=== PATIENT | male | born 1960 | race Caucasian/White ===

== ENCOUNTER 2017-11-30 08:00 | Outpatient (RCR) | payer OTHER ==
[2017-11-25 08:09] VITALS: BP 105/72
[2017-11-25 08:27] LABS: PLATELET COUNT, AUTOMATED 119 K/uL (150-450)
[~2017-11-30 08:00] MED LIST: ADVIL; ALBI30PE; ALL300 PO; AMOX-556 PO; ASP325 PO; BACDS PO; CETI10CA8 PO; DOC100 PO; LEVO50TA80 PO; LEVO75TA73 PO; LOR1 PO; METF-410 PO; MULT1TAB64 PO; PER PO; PRE10 PO; PRO5 PO; TUM500 PO; VALA500T66 PO; ZOLP-350 PO
[2017-11-30 08:07] VITALS: BP 129/85
--- NOTE | 2017-12-01 16:28 | ONCOLOGY FOLLOW UP NOTE ---
EVENT DATE: November 30, 2017 CHIEF COMPLAINT/REASON FOR VISIT Mr. Isaac is a pleasant 56-year-old gentleman with stage IV marginal zone lymphoma and secondary erythrocytosis here for followup. HISTORY OF PRESENT ILLNESS Dell returns. He was diagnosed in 2010 and treated with Treanda and Rituxan, followed by two years of maintenance Rituxan. He finished all therapy in May 2013 and has no evidence of disease at this time. It is not unusual to have a multiple-year remission with this indolent lymphoma, but it is likely not cured. No signs of relapse. He does have acquired hypogammaglobulinemia. No significant infections this winter. He did receive the flu shot. He does get more sinus drainage, but this is likely due to the climate, as this has been a lifelong problem for him. Last summer and fall when he had more issues. The air quality with smoke was poor and that may have been contributing. He has gained some weight and has some left hip pain. He has a history of right hip replacement. I doubt that this is related to the lymphoma. SOCIAL HISTORY The patient has two children. One is a PhD student in chemical engineering at the [employer]. 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 FAMILY HISTORY Remarkable for a father with Waldenstrom macroglobulinemia who from the disease. REVIEW OF SYSTEMS CONSTITUTIONAL: No fevers, chills, weight change. No fatigue today. HEENT: No headache or vision changes. No infectious symptoms. CARDIOVASCULAR: No chest pain, dyspnea on exertion or edema. RESPIRATORY: No shortness of breath, wheeze, cough. GASTROINTESTINAL: No nausea, vomiting, diarrhea. Has had a history of hemorrhoids in the past. Positive weight gain and is going to try to lose weight. MUSCULOSKELETAL: No weakness or joint pain. Positive chronic back pain. Positive left hip pain. PSYCHIATRIC: No anxiety or depression. ENDOCRINE: No heat or cold intolerance. SKIN: No concerning rashes or lesions. LYMPHATIC: No appreciable lumps or bumps that he notices. The remainder of the 14-point review of systems is otherwise negative, except as noted above in the HPI. PHYSICAL EXAMINATION VITAL SIGNS: Blood pressure 129/85, pulse 68, respiratory rate 16, temperature 97.8 Fahrenheit, oxygen saturation 91% on room air. Weight 122.6 kg and stable compared to six months ago.. Pain 7/10 in the left hip. Fatigue 5/10. GENERAL: In stable condition, resting comfortably in the chair. HEENT: Normocephalic, atraumatic. CARDIOVASCULAR: Deferred. LYMPHATIC: No appreciable cervical, supraclavicular or axillary adenopathy. ABDOMEN: Soft. No organomegaly. Obese. EXTREMITIES: No clubbing, cyanosis or edema. The remainder of the physical exam otherwise unremarkable. IMPRESSION AND PLAN Mr. Isaac is a very pleasant 56-year-old gentleman with the followin. Stage IV marginal zone lymphoma, still in remission. 2. Secondary erythrocytosis. His hemoglobin is normal. 3. Acquired hypogammaglobulinemia due to number one. This is due to treatment with bendamustine and lymphoma. He is not having frequent infections, although his IgG is in the 300s. He is a candidate for IVIG, but not required at this time. We will see him every six months with labs. I answered all of his many questions today. Discussed weight loss and increased exercise, as well as his hip pain. Recommend followup with his primary care provider. Billing: Return visit level 4. Total time 30 minutes, counseling time 20. MTDD
== END 2017-12-18 16:16 | disposition home or self-care (01) ==
LOC: ONC 08:00
PROVIDERS: ATTEND Internal Medicine
DX: C82.80 Other types of follicular lymphoma, unspecified site (principal); D80.1 Nonfamilial hypogammaglobulinemia; Z92.21 Personal history of antineoplastic chemotherapy
CPT/HCPCS: 36415; 82040; 82247; 82310; 82374; 82435; 82565; 82728; 82784; 82947; 84075; 84132; 84155; 84295; 84450; 84460; 84520; 85025; 99212

== ENCOUNTER 2018-06-09 08:16 | Outpatient (RCR) | payer OTHER ==
[~2018-06-09 08:16] MED LIST changes: -ALBI30PE; +ALBI30PE3; -METF-410 PO; +METF-450 PO
[2018-06-09 08:43] VITALS: BP 128/83
[2018-06-09 08:50] LABS: PLATELET COUNT, AUTOMATED 166 K/uL (150-450)
[2018-06-22 08:06] VITALS: BP 123/76
[2018-06-22] MEDS ORDERED: INFLUENZA VIRUS VAC 0.5ML SYR IM ONLY ONE (08:30)
--- NOTE | 2018-06-22 20:06 | ONCOLOGY FOLLOW UP NOTE ---
EVENT DATE: June 22, 2018 CHIEF COMPLAINT Followup for stage IV marginal zone lymphoma, in remission. HISTORY OF PRESENT ILLNESS Patient is a 57-year-old male with stage IV marginal zone lymphoma and secondary erythrocytosis. He is seen today in six-month followup. He is doing very well. He denies any fatigue, fevers, chills, or night sweats. He underwent a left total hip replacement in May, but feels recovered from that. He does have some mild constipation, controlled with stool softeners. He complains of occasional insomnia, but uses melatonin with good effect. He has had no intercurrent infections in the preceding six months. TREATMENT HISTORY Patient was diagnosed in 2010. He was treated with Treanda and Rituxan, followed by two years of maintenance Rituxan. He completed all therapy in May 2013 and has had no evidence of disease recurrence. He does have acquired hypogammaglobulinemia. PAST MEDICAL HISTORY 1. Type 2 diabetes. 2. Hypothyroidism. PAST SURGICAL HISTORY 1. Right total hip replacement 2009. 2. Left total hip replacement May 2018. FAMILY HISTORY Patient's father of Waldenstrom macroglobulinemia. SOCIAL HISTORY Patient is . He has two children. 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 He has never smoked. REVIEW OF SYSTEMS A 14-point review of systems is performed and is negative except as stated above. PHYSICAL EXAMINATION VITAL SIGNS: Blood pressure 123/76, pulse 78, respirations 18, temperature 99.1, O2 sat 93%. GENERAL: Patient is a well-developed, well-nourished male in no acute distress. HEENT: Normocephalic, atraumatic. LYMPH NODES: No palpable adenopathy. CARDIOVASCULAR: Heart rate regular, 78 per minute, without murmur, S3, or S4. LUNGS: Clear bilaterally. ABDOMEN: Soft, nontender, with active bowel sounds. Obese. EXTREMITIES: No clubbing, cyanosis, or edema. LABORATORY CBC on 06/09/2018 showed a WBC of 5.9, hemoglobin 15.7, hematocrit 47.3, platelets 166,000. CMP was within normal limits. Immunoglobulins low, but stable at 364. IMPRESSION AND PLAN The patient is a 57-year-old male with: 1. Stage IV marginal zone lymphoma. He completed all therapy in May 2013 and remains in remission. 2. Secondary erythrocytosis. Hematocrit remains normal, today 47.3. 3. Acquired hypogammaglobulinemia. IgG remains fairly stable, today 364. He has had no issues with recurrent infections. 4. Flu vaccine today. 5. Follow up in six months for continued care. CBC, CMP, and immunoglobin panel will be drawn before that visit. LOVE
== END 2018-06-30 08:28 | disposition home or self-care (01) ==
LOC: ONC 08:16
PROVIDERS: ATTEND Internal Medicine
DX: C82.80 Other types of follicular lymphoma, unspecified site (principal)
CPT/HCPCS: 36415; 82040; 82247; 82310; 82374; 82435; 82565; 82784; 82947; 84075; 84132; 84155; 84295; 84450; 84460; 84520; 85025; 90471; 90674; 99212

== ENCOUNTER → 2018-07-07 | Outpatient (CLI) | payer OTHER ==
[2018-07-07 12:16] VITALS: BP 119/78
== END ==
LOC: SPU 12:07
PROVIDERS: ATTEND Internal Medicine
DX: Z12.5 Encounter for screening for malignant neoplasm of prostate (principal); C82.80 Other types of follicular lymphoma, unspecified site
CPT/HCPCS: 36415; 84153